=== PATIENT | male | born 2000 | race Hispanic/Latino ===

== ENCOUNTER 2024-06-07 15:32 | Emergency (ER) | payer SELFPAY ==
[~2024-06-07] VITALS: Ht 185.4 cm; Wt 120.2 kg
[2024-06-07] MEDS: acetaMINOPHEN 500 MG TABLET PO ONE (16:01)
[2024-06-07 16:31] VITALS: BP 131/56; PULSE 78; RESP 20; TEMP 98.8; O2SAT 98
[2024-06-07] MEDS ORDERED: MUPI15C TP (16:31)
[2024-06-07] MEDS ORDERED: CEPH500T PO (16:31)
== END 2024-06-07 17:01 | disposition home or self-care (01) ==
LOC: EDH 15:32
DX: S90.511A Abrasion, right ankle, initial encounter (principal); L08.9 Local infection of the skin and subcutaneous tissue, unspecified; X58.XXXA Exposure to other specified factors, initial encounter; Y93.89 Activity, other specified; Y92.89 Other specified places as the place of occurrence of the external cause; Y99.8 Other external cause status
CPT/HCPCS: 73610